=== PATIENT | male | born 1970 | race Two or more races ===

== ENCOUNTER 2017-09-02 07:54 | Emergency (ER) | payer SELFPAY ==
[~2017-09-02] VITALS: Ht 170.2 cm; Wt 90.7 kg
[~2017-09-02 07:54] MED LIST: DOCU50CA9 PO; OXYC-323 PO
[2017-09-02 08:03] VITALS: BP 142/93
--- NOTE | 2017-09-02 08:22 | PHYS DOC ---
Past Medical History Past Medical History: No Pertinent History Past Surgical History: Other Additional Past Surgical Histo: wisdom teethremoved Alcohol Use: None Drug Use: None Adult General Chief Complaint Chief Complaint: NAUSEA/VOMITING/DIARRHA HPI HPI Patient is a 46 year old male presents to the emergency department with a history of dizziness when he woke up this morning, He states the dizziness caused him to have vomiting in which he vomited 3 times. He denies abdominal pain. 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 Review of Systems Review of Systems Constitutional: Denies fever or chills [] Eyes: Denies change in visual acuity, redness, or eye pain [] HENT: Denies nasal congestion or sore throat [] Respiratory: Denies cough or shortness of breath [] Cardiovascular: No additional information not addressed in HPI [] GI: Denies abdominal pain, nausea, vomiting, bloody stools or diarrhea [] : Denies dysuria or hematuria [] Musculoskeletal: Denies back pain or joint pain [] Integument: Denies rash or skin lesions [] Neurologic: Denies headache, focal weakness or sensory changes. C/o dizziness Endocrine: Denies polyuria or polydipsia [] All other systems were reviewed and found to be within normal limits, except as documented in this note. Current Medications Current Medications Current Medications Medications (Trade) Dose Ordered Sig/Lisset Start Time Stop Time Status Last Admin Dose Admin Meclizine HCl (Antivert) 25 mg 1X ONCE 09/02/17 08:30 09/02/17 08:31 DC 09/02/17 08:21 25 MG Ondansetron HCl (Zofran) 4 mg 1X ONCE 09/02/17 08:30 09/02/17 08:31 DC 09/02/17 08:22 4 MG Allergies Allergies Allergies Coded Allergies Type Severity Reaction Last Updated Verified No Known Drug Allergies 12/15/14 No Physical Exam Physical Exam Constitutional: Well developed, well nourished, no acute distress, non-toxic appearance. [] HENT: Normocephalic, atraumatic, bilateral external ears normal, oropharynx moist, no oral exudates, nose normal. [] Eyes: PERRLA, EOMI, conjunctiva normal, no discharge. [] Neck: Normal range of motion, no tenderness, supple, no stridor. [] Cardiovascular:Heart rate regular rhythm, no murmur [] Lungs & Thorax: Bilateral breath sounds clear to auscultation [] Skin: Warm, dry, no erythema, no rash. [] Extremities: No tenderness, no cyanosis, no clubbing, ROM intact, no edema. [] Neurologic: Alert and oriented X 3, normal motor function, normal sensory function, no focal deficits noted. cranial nerve II-XII intact Psychologic: Affect normal, judgement normal, mood normal. [] Current Patient Data Vital Signs Vital Signs Date Time Temp Pulse Resp B/P (MAP) Pulse Ox O2 Delivery O2 Flow Rate FiO2 09/02/17 08:03 97.8 94 20 142/93 (109) 95 Room Air 97.8 Lab Values Laboratory Tests Test 09/02/17 08:05 White Blood Count 8.4 x10^3/uL (4.0-11.0) Red Blood Count 5.02 x10^6/uL (4.30-5.70) Hemoglobin 15.0 g/dL (13.0-17.5) Hematocrit 45.8 % (39.0-53.0) Mean Corpuscular Volume 91 fL (79-100) Mean Corpuscular Hemoglobin 30 pg (25-35) Mean Corpuscular Hemoglobin Concent 33 g/dL (31-37) Red Cell Distribution Width 14.7 % (11.5-14.5) H Platelet Count 236 x10^3/uL (140-400) Neutrophils (%) (Auto) 61 % (31-73) Lymphocytes (%) (Auto) 31 % (24-48) Monocytes (%) (Auto) 7 % (0-9) Eosinophils (%) (Auto) 1 % (0-3) Basophils (%) (Auto) 1 % (0-3) Neutrophils # (Auto) 5.1 x10^3uL (1.8-7.7) Lymphocytes # (Auto) 2.6 x10^3/uL (1.0-4.8) Monocytes # (Auto) 0.6 x10^3/uL (0.0-1.1) Eosinophils # (Auto) 0.1 x10^3/uL (0.0-0.7) Basophils # (Auto) 0.1 x10^3/uL (0.0-0.2) Sodium Level 140 mmol/L (136-145) Potassium Level 3.4 mmol/L (3.5-5.1) L Chloride Level 106 mmol/L (98-107) Carbon Dioxide Level 26 mmol/L (21-32) Anion Gap 8 (6-14) Blood Urea Nitrogen 19 mg/dL (8-26) Creatinine 0.9 mg/dL (0.7-1.3) Estimated GFR (Cockcroft-Gault) 90.8 BUN/Creatinine Ratio 21 (6-20) H Glucose Level 154 mg/dL (70-99) H Calcium Level 9.0 mg/dL (8.5-10.1) Total Bilirubin 0.5 mg/dL (0.2-1.0) Aspartate Amino Transferase (AST) 22 U/L (15-37) Alanine Aminotransferase (ALT) 33 U/L (16-63) Alkaline Phosphatase 111 U/L (46-116) Total Protein 8.0 g/dL (6.4-8.2) Albumin 3.7 g/dL (3.4-5.0) Albumin/Globulin Ratio 0.9 (1.0-1.7) L Laboratory Tests 09/02/17 08:05 Laboratory Tests 09/02/17 08:05 EKG EKG EKG completed at 0808 with HR 75 Sinus arrhythmia noted no STEMI per Dr Fransico Fishman[ ] Radiology/Procedures Radiology/Procedures [facility] [address] [place] [address] IMAGING REPORT Signed PATIENT: GERALD LUNA ACCOUNT: [id number] : 1970 LOCATION: ER AGE: 46 SEX: M EXAM STATUS: REG ER ORD. PHYSICIAN: LAYNE GUZMÁN APRN REASON: dizziness with vomiting PROCEDURE: CT HEAD WO CONTRAST CT head without contrast 09/02/2017 Clinical indication: Dizziness with vomiting. Comparison: None. Technique: Multiple CT images of the head were obtained without contrast according to standard protocol. RS Compliance Statement: One or more of the following individualized dose reduction techniques were utilized for this examination: 1. Automated exposure control 2. Adjustment of the mA and/or kV according to patient size 3. Use of iterative reconstruction technique Findings: Ventricles and subarachnoid spaces are normal in size and configuration. No acute intracranial hemorrhage or extra-axial fluid collection. No midline shift or mass effect. The basal cisterns are patent. Espionsa-white matter interfaces are maintained. There is a small left maxillary sinus mucosal retention cyst. Impression: No acute intracranial hemorrhage or mass effect. DICTATED and SIGNED BY: SAFIA GANN MD DATE: 09/02/17 0846 CC: LAYNE GUZMÁN APRN; NO PCP ~ [] Course & Med Decision Making Course & Med Decision Making Pertinent Labs and Imaging studies reviewed. (See chart for details) CBC, CMP, within normal limits. CT scan of the head No acute intracranial hemorrhage or mass effect per radiologist. Patient was provided with results. Patient states his dizziness is better, however he states he is still a little nauseated, No emesis noted here during the ER visit. Patient and family was provided with discharge instructions. Whitesmith at bedside provided information to patient. Patient will be provided with meclizine and zofran with recommendations to followup with PCP. I've spoken with the patient and/or caregivers. I've explained the patient's condition, diagnosis and treatment plan based on information available to me at this time. I've answered the patient's and/or caregivers questions and addressed any concerns. The patient and/or caregivers have a good understanding the patient's diagnosis, condition and treatment plan as can be expected at this point. Vital signs have been stabilized. The patient's condition is stable for discharge from the emergency department. The patient will pursue further outpatient evaluation with her primary care provider or other designated consulting physician as outlined in the discharge instructions. Patient and/or caregivers are agreeable to this plan of care and follow-up instructions have been explained in detail. The patient and/or caregivers have received these instructions in written format and expressed understanding of these discharge instructions. The patient and her caregivers are aware that if any significant change in condition or worsening of symptoms should prompt him to immediately return to this of the closest emergency department.~ If an emergent department is not readily available I would encourage him to call 911. Mini Disclaimer Dragon Disclaimer This electronic medical record was generated, in whole or in part, using a voice recognition dictation system. Departure Departure Impression: Primary Impression: Vertigo Disposition: HOME, SELF-CARE Condition: STABLE Referrals: NO PCP (PCP) Patient Instructions: Vertigo, [id number] Additional Instructions: Activity as tolerated Mediation as prescribed Tylenol or Ibuprofen for headache Clear liquid diet for the next 24 hours Followup with primary care provider in 5-7 days Return to emergency department as needed for signs and symptoms that become worse. Scripts Ondansetron (ZOFRAN ODT) 4 Mg Tab.rapdis 1 TAB SL Q8HRS, #10 TAB Prov: LAYNE GUZMÁN APRN 09/02/17 Meclizine Hcl (MECLIZINE HCL) 25 Mg Tablet 1 TAB PO PRN TID, #30 TAB Prov: LAYNE GUZMÁN APRN 09/02/17 LAYNE GUZMÁN APRN Sep 02, 2017 08:22
[2017-09-02 08:26] LABS: BASO # 0.1 x10^3/uL (0.0-0.2); BASO % 1 % (0-3); EOS % 1 % (0-3); HEMATOCRIT 45.8 % (39.0-53.0); LYMPH # 2.6 x10^3/uL (1.0-4.8); LYMPH % 31 % (24-48); MEAN CORPUSCULAR HEMOGLOBIN 30 pg (25-35); MEAN CORPUSCULAR HGB CONC 33 g/dL (31-37); MEAN CORPUSCULAR VOLUME 91 fL (79-100); MONO % 7 % (0-9); NEUT % 61 % (31-73); PLATELET COUNT 236 x10^3/uL (140-400); RED BLOOD COUNT 5.02 x10^6/uL (4.30-5.70); RED CELL DISTRIBUTION WIDTH 14.7 % (11.5-14.5); WHITE BLOOD COUNT 8.4 x10^3/uL (4.0-11.0)
[2017-09-02] MEDS ORDERED: MECLIZINE HCL 12.5 MG TABLET. PO ONE (08:30)
[2017-09-02] MEDS ORDERED: ONDANSETRON PF 4 MG/2 ML VIAL. IV ONE (08:30)
[2017-09-02 08:31] LABS: CREATININE 0.9 mg/dL (0.7-1.3); GFR 90.8; POTASSIUM 3.4 mmol/L (3.5-5.1)
[2017-09-02 08:37] LABS: ALBUMIN 3.7 g/dL (3.4-5.0); ALBUMIN/GLOBULIN RATIO 0.9 (1.0-1.7); TOTAL BILIRUBIN 0.5 mg/dL (0.2-1.0)
--- NOTE | 2017-09-02 08:44 | EKG ---
[facility] [address] [place] [address] Test Date: 2017-09-02 Test Time: 08:08:38 Pat Name: GERALD LUNA Department: Room: Gender: M Voice Writing Reporter: : 1970 Requested By: LAYNE GUZMÁN Order Number: [id number] Reading MD: Dalton Keita Measurements Intervals [place] Rate: 75 P: 40 AL: 174 QRS: -17 QRSD: 94 T: 6 QT: 390 QTc: 438 Interpretive Statements SINUS ARRHYTHMIA LEFTWARD AXIS NONSPECIFIC ST-T WAVE CHANGES. RI6.01 No previous ECG available for comparison Electronically Signed On 09-02-2017 16:06:15 TRAINS DISPATCHER SUPERVISOR by Dalton Keita
--- NOTE | 2017-09-02 08:52 | RAD ---
CT head without contrast 09/02/2017 Clinical indication: Dizziness with vomiting. Comparison: None. Technique: Multiple CT images of the head were obtained without contrast according to standard protocol. RS Compliance Statement: One or more of the following individualized dose reduction techniques were utilized for this examination: 1. Automated exposure control 2. Adjustment of the mA and/or kV according to patient size 3. Use of iterative reconstruction technique Findings: Ventricles and subarachnoid spaces are normal in size and configuration. No acute intracranial hemorrhage or extra-axial fluid collection. No midline shift or mass effect. The basal cisterns are patent. Espinosa-white matter interfaces are maintained. There is a small left maxillary sinus mucosal retention cyst. Impression: No acute intracranial hemorrhage or mass effect.
[2017-09-02] MEDS ORDERED: MECL25TA3 PO (09:04)
[2017-09-02] MEDS ORDERED: ONDA4TAB10 SL (09:04)
== END 2017-09-02 09:10 | disposition home or self-care (01) ==
LOC: ER 07:54
DX: R42 Dizziness and giddiness (principal); R11.10 Vomiting, unspecified
CPT/HCPCS: 36415; 70450; 80053; 85025; 93005; 96374; 99285; J2405; J8597